=== PATIENT | female | born 1965 | race Caucasian/White ===

== ENCOUNTER 2017-03-17 10:39 | Day surgery (SDC) | payer OTHER ==
[~2017-03-17 10:39] MED LIST: LEVO100T4 PO; LEVO88TA2 PO; OMEP20TA39 PO; PRIN5TAB PO
[2017-03-17 12:22] VITALS: BP 135/75; PULSE 55; RESP 14; TEMP 98; O2SAT 99
[2017-03-17] MEDS ORDERED: LIDOCAINE HCL 1% 20 ML VIAL ONE (12:58)
[2017-03-17 13:00] VITALS: BP 142/78; PULSE 50; RESP 20; TEMP 98.6; O2SAT 100
[2017-03-17 13:15] VITALS: BP 120/75; PULSE 53; RESP 20; O2SAT 99
--- NOTE | 2017-03-17 14:32 | RADRPT ---
EXAM DATE/TIME: 03/17/2017 12:16 [place] COMPARISON: No previous studies available for comparison. EXTERNAL COMPARISON: [facility], Ultrasound thyroid, Feb 17 2017 INDICATIONS : Right thyroid nodule. MEDICAL HISTORY : Carcinoma, breast. GERD. Hypothyroid. SURGICAL HISTORY : Cholecystectomy. Cardiac catheteriztion. Bilateral mastectomy. Back surgery. ENCOUNTER: Subsequent ACUITY: 3 weeks PAIN SCORE: 1/10 LOCATION: Right neck ORGAN: Right thyroid lobe SPECIMENS: Two fine needle aspirate(s) submitted for pathologic evaluation. DEVICE: 22 gauge needle Post procedure scanning reveals no hematoma or other complication. The possibility does exist that the tissue obtained will be non-diagnostic. If the sample is non-rocky gnostic a repeat biopsy or surgical biopsy may need to be performed. TECHNIQUE: 1. Ultrasound guidance for needle biopsy. 2. Needle biopsy. The risks, benefits and alternatives to the procedure were explained and verbal and written consent w as obtained. The site was prepped in sterile fashion. Full sterile technique was used, including ca p, mask, sterile gloves and gown and a large sterile sheet. Hand hygiene and 2% chlorhexidine and/or betadine/alcohol prep was utilized per protocol for cutaneous antisepsis. The skin and subcutaneous tissues were infiltrated with local anesthetic solution. Sterile gel and sterile probe cover were u tilized for ultrasound guidance. Patient had previous biopsy of the head report was inadequate. Under direct ultrasound visualization passage were obtained of the nodule in the right lobe. There w as limited for pathologic evaluation. The patient tolerated the procedure well and left the ultrasound suite in stable condition. CONCLUSION: Uncomplicated ultrasound guided needle biopsy nodule right lobe of the thyroid. Mukesh Raygoza MD FACR on March 17, 2017 at 14:29 Board Certified Radiologist. This report was verified electronically.
== END 2017-03-17 13:20 | disposition home or self-care (01) ==
LOC: HRAD 10:39 → HRIP 10:40 → HRAD 13:20
PROVIDERS: ATTEND Family Medicine
DX: E04.1 Nontoxic single thyroid nodule (principal); K21.9 Gastro-esophageal reflux disease without esophagitis; E03.9 Hypothyroidism, unspecified; Z90.13 Acquired absence of bilateral breasts and nipples; Z85.3 Personal history of malignant neoplasm of breast
CPT/HCPCS: 10022; 76942; 88172; 88173